=== PATIENT | male | born 1935 | race Caucasian/White ===

== ENCOUNTER → 2016-07-05 | Outpatient (CLI) | payer MEDICARE, BC ==
[~2016-07-05] MED LIST: ACET-2321 PO; AMIO200T7 PO; DILT120T PO; DIVA250T4 PO; DIVA500T37 PO; DONE10TA30 PO; DULO60CA46 PO; FURO-154 PO; GABA-336 PO; HYDR-4072 PO; LEVO75TA10 PO; LOPE1TAB PO; LORA0.5T86 PO; MAGN400O4 PO; MENT113G5 TOP; METO100T7 PO; MINO100T PO; OMEP20TA2 PO; POTA10CA37 PO; PRAZ2CAP2 PO; QUET25TA PO; RIVA20TA PO; SENN-152 PO; TAMS-1 PO
[2016-07-05 15:24] LABS: BLOOD, URINE TRACE-LYSED (NEGATIVE); COLOR,URINE YELLOW (YELLOW); LEUKOCYTE ESTERASE ,URINE NEGATIVE (NEGATIVE); NITRITE,URINE NEGATIVE (NEGATIVE); UROBILINOGEN,URINE 0.2 EU/DL (NORMAL)
== END ==
LOC: LABN.PM 15:17
PROVIDERS: ATTEND Family Medicine
DX: N39.0 Urinary tract infection, site not specified (principal)
CPT/HCPCS: 81003; 87086

== ENCOUNTER 2016-07-11 14:38 | Emergency (ER) | payer MEDICARE, BC ==
[~2016-07-11] VITALS: Ht 182.9 cm; Wt 97.2 kg
--- NOTE | 2016-07-11 14:38 | NUR ---
ROOM TO ROOM VIA EMS COT
[2016-07-11] MEDS ORDERED: LABETALOL 100mg/20ml INJECTION IV ONE (14:45)
[2016-07-11] MEDS ORDERED: NORMAL SALINE 500 ML IV ONE (15:00)
[2016-07-11] MEDS ORDERED: GABA-338 PO (15:12)
--- NOTE | 2016-07-11 15:12 | DI ---
Indication: ITS.REASON: weakness PROCEDURE: CHEST 1 VIEW: Encounter: Initial Comparison: December 14, 2015 Findings: The lungs are stable in appearance without new focal airspace consolidation. There is no pleural effusion or pneumothorax. The heart size, pulmonary vascularity and mediastinal contours are unchanged. Left pacemaker. Right shoulder replacement. Cervical spine hardware. IMPRESSION: Stable appearance of the chest without acute cardiopulmonary disease. .
[2016-07-11 15:18] LABS: BASOPHILS % (AUTO) 0.2 % (0-2); EOSINOPHILS # (AUTO) 0.1 T/MM3 (0-0.5); EOSINOPHILS % (AUTO) 2.2 % (0-4); HCT - HEMATOCRIT 42.9 % (41-53); HGB - HEMOGLOBIN 14.2 GM/DL (13.5-17.5); IMMATURE GRANULOCYTE # (AUTO) 0.03 T/MM3 (0.00-0.03); IMMATURE GRANULOCYTE % (AUTO) 0.6 % (0.0-0.5); LYMPHOCYTES # (AUTO) 0.9 T/MM3 (1-4.8); LYMPHOCYTES % (AUTO) 17.8 % (23-45); MEAN CORPUSCULAR HGB 30.3 UUG (26-34); MEAN CORPUSCULAR HGB CONC(MCHC 33.1 GM/DL (31-37); MEAN CORPUSCULAR VOLUME 91.7 UM3 (80-100); MEAN PLATELET VOLUME 8.5 UM3 (9.4-12.4); MONOCYTES # (AUTO) 0.4 T/MM3 (0-0.8); MONOCYTES % (AUTO) 8.2 % (0-9.0); NEUTROPHILS #(AUTO)-ABSOLUTE 3.5 T/MM3 (1.8-7.7); RED BLOOD COUNT 4.68 M/MM3 (4.50-5.90); WBC - WHITE BLOOD COUNT 4.9 T/MM3 (4.5-11.0)
[2016-07-11 15:28] VITALS: Ht 182.9 cm; Wt 97.2 kg
[2016-07-11 15:30] LABS: ANION GAP 7 MEQ/L (5-15); BUN/CREATININE RATIO 14 RATIO (6-26); CHLORIDE 103 MEQ/L (98-107); CO2 - CARBON DIOXIDE 31 MEQ/L (22-30); CREATININE 2.4 MG/DL (0.8-1.5); GLOMERULAR FILTRATION RATE 26; GLUCOSE 138 MG/DL (75-110); POTASSIUM 4.7 MEQ/L (3.6-5); SODIUM 141 MEQ/L (134-144)
[2016-07-11 15:30] LABS: BLOOD, URINE NEGATIVE (NEGATIVE); COLOR,URINE YELLOW (YELLOW); LEUKOCYTE ESTERASE ,URINE NEGATIVE (NEGATIVE); NITRITE,URINE NEGATIVE (NEGATIVE); UROBILINOGEN,URINE 0.2 EU/DL (NORMAL)
[2016-07-11 15:38] LABS: BACTERIA,URINE NONE SEEN (NEGATIVE); RBC,URINE NONE SEEN /HPF (0-3); SQUAMOUS EPITHELIAL CELL,UR NONE SEEN; WBC,URINE 0-1 /HPF (0-5)
--- NOTE | 2016-07-11 15:45 | ERPDOC ---
Departure Disposition Decision Date: Jul 11, 2016 Disposition Decision Time: 16:28 Disposition: 01 DISCHARGED HOME, SELF-CARE Impression Impression Impression: Primary Impression: Orthostatic hypotension Additional Impression: Weakness Severity: Mild Condition: Improved Seen By: Physician only Referrals: PAWAN BRIGGS MD (Family) 1 Day Patient Instructions: Hypotension (ED), Weakness (ED) Problems/Meds/Labs Reviewed?: Yes Medications reviewed and manag: Yes Follow up care ordered?: Yes Mental Status: Alert, Forgetful, Oriented HPI - General Medical General Chief Complaint: Dizzy Stated Complaint: CP, DIFF BREATHING Time Seen by Provider: 14:40 Source: patient (Patient presents to the ER after becoming weak while walking. Patient was then found to have a HR in the 40's although patient remained normotensive. ), EMS (Patient found the patient with normal vitals), other ( Patient arrives in the ER respomsive to person and place, confused to time. Patient denies complaint, denies striking his head, no focal motor or sensory deficits noted. ) Exam Limitations: no limitations HPI - General Medical Occurred At: home Onset: Changing over time Duration: 1-3 hrs Pain Scale: Now & Worst: 0/10 Severity: mild Modifying Factors: IMPROVES WITH: other (Baseline on arrival at the ER) Associated Symptoms: denies symptoms Hx of Similar Symptoms: No Allergies: Coded Allergies: morphine (Verified Allergy, Unknown, 07/11/16) Past History Patient Surgical History Cervical spine fusion. Pacemaker. Left knee - 10/2014. Right shoulder Past Medical History Metabolic: hypercholesterolemia, hypertension Cardiac: A-fib, CAD, echocardiogram, other GI: GERD Male: renal failure Neurological: TIA Musculoskeletal: osteoarthritis Psychological: anxiety, dementia Surgical History General: neck Cardiac: pacemaker Joint: knee, shoulder Vaccines Hx Influenza Vaccination: Yes (FALL 2014) Hx Pneumococcal Vaccination: Yes (07/14/15) Social History Smoking Status: Unknown if ever smoked Does patient use chewing tobac: No Second Hand Exposure: No Substance Use Type: does not use Alcohol Intake: none Sexuality: female partner Housing: intermediate Service: No Current Occupational Status: retired Occupational Hazard: No Record Review Pertinent history updated: Yes Review of Systems Constitutional Constitutional: DENIES: chills, fever Eyes Lids/Accessories: DENIES: erythema, swelling ENMT Ears: DENIES: erythema, pain Sinuses: DENIES: congestion, rhinorrhea Mouth/Throat: DENIES: sore throat Cardiovascular Cardiac: DENIES: chest pain, dyspnea on exertion, orthopnea Rhythm/Rate: DENIES: tachycardia Pulmonary Respiratory: DENIES: cough, dyspnea, sputum GI Upper Abdomen: DENIES: nausea, pain, vomiting Lower Abdomen: DENIES: constipation, diarrhea, pain General: DENIES: dysuria Musculoskeletal General: DENIES: cramps, pain, weakness Integumentary Skin: DENIES: color change, itching, rash Neurological General: DENIES: change in strength, headache, numbness, seizures, syncope, weakness Psychiatric Psychiatric: DENIES: anxiety, depression, nervousness Hematologic/Lymphatic Hematologic/Lymphatic: DENIES: anemia Allergic/Immunological Allergic/Immunoligical: DENIES: sneezing All other Systems All Other Systems: Reviewed and Negative Physical Exam General General Nourishment: well nourished, well developed, appears stated age, adult General Body Habitus: well groomed Vitals and Pain First Documented Vital Signs Date Time Temp Pulse Resp B/P Pulse Ox O2 Delivery O2 Flow Rate FiO2 07/11/16 15:10 61 103/56 07/11/16 15:23 11 93 07/11/16 15:28 97.8 Room Air Weight: Kilograms: 97.200 Height (feet): 6 Height (inches): 0 Triage Pain Scale: RN VS reviewed by Provider: Yes Eyes (brief) Eyes Brief: found: EOMI, PERRL ENMT (brief) ENMT Brief: FOUND: TM clear, TM good light reflex, mucosa moist, NOT FOUND: pharnyx erythema Neck (brief) Neck: FOUND: trachea midline, NOT FOUND: adenopathy, nuchal rigidity, tenderness, tracheal deviation Respiratory (brief) Respiratory: FOUND: clear all alaniz, equal bilaterally Cardiovascular (brief) Cardiac: FOUND: regular rate, regular rhythm Capillary Refill: <2 sec Pulses: all distal extremities, equal, strong Abdomen (brief) Abdominal Brief: FOUND: bowel normo active x4, soft, NOT FOUND: distended, tender Lymphatic (brief) Lymphatic Brief: NOT FOUND: adenopathy Musculoskeletal (brief) Musculoskeletal Brief: NOT FOUND: spasm, tenderness Integumentary (brief) Integumentary Brief: FOUND: pink, warm Neurologic (brief) Neurological Brief: FOUND: CN w/o gross def to obs, motor-no gross deficits, sensory-no gross deficits Psychiatric (brief) Psychiatric Brief: FOUND: alert, attentive, normal affect, oriented Differential Diagnoses Considering: Acute TN, Depression, Encephalitis, Hypo/Hyperglycemia, Hypo/ Hyperkalemia, Hypo/Hypernatremia, Medication Effect, Metabolic, Pneumonia, Psychosis, Other Progress Results/Orders Orders Procedure Category Date Status Time Labetalol (Trandate) PHA 07/11/16 Complete 14:45 Cbc W/Auto LAB 07/11/16 Complete Diff-Reflex Manual 14:52 Bmp - Basic Metabolic LAB 07/11/16 Complete Panel 14:52 Troponin I W LAB 07/11/16 Complete Hemolysis Index 14:52 EKG EKG 07/11/16 Taken 14:52 Chest 1 View RAD 07/11/16 Resulted 14:52 Iv Lock (Ed Only) EDM 07/11/16 Transmitted 14:52 Normal Saline (Ns) PHA 07/11/16 Complete 15:00 Orthostatic Bp/Pulse EDM 07/11/16 Transmitted 14:52 UA, LAB 07/11/16 Complete Dip&Micro(Complete) & 15:24 Lab Results Laboratory Tests Test 07/11/16 15:13 07/11/16 15:24 White Blood Count 4.9T/MM3 Red Blood Count 4.68M/MM3 Hemoglobin 14.2GM/DL Hematocrit 42.9% Mean Corpuscular Volume 91.7UM3 Mean Corpuscular Hemoglobin 30.3UUG Mean Corpuscular Hemoglobin Concent 33.1GM/DL RDW Standard Deviation 44.4FL Platelet Count 104T/MM3 Mean Platelet Volume 8.5UM3 Immature Granulocyte % (Auto) 0.6% Neutrophils (%) (Auto) 71.0% Lymphocytes (%) (Auto) 17.8% Monocytes (%) (Auto) 8.2% Eosinophils (%) (Auto) 2.2% Basophils (%) (Auto) 0.2% Absolute Immature Granulocyte (auto 0.03T/MM3 Absolute Neutrophils (auto) 3.5T/MM3 Absolute Lymphocytes (auto) 0.9T/MM3 Absolute Monocytes (auto) 0.4T/MM3 Absolute Eosinophils (auto) 0.1T/MM3 Absolute Basophils (auto) 0.0T/MM3 Turbidity < 20 Sodium Level 141MEQ/L Potassium Level 4.7MEQ/L Chloride Level 103MEQ/L Carbon Dioxide Level 31MEQ/L Anion Gap 7MEQ/L Blood Urea Nitrogen 33.0MG/DL Creatinine 2.4MG/DL Glomerular Filtration Rate Calc 26 BUN/Creatinine Ratio 14RATIO Glucose Level 138MG/DL Calculated Osmolality 280MOSM/KG Calcium Level 9.0MG/DL Icterus Index < 2 Troponin I < 0.012ng/ml Chemistry Specimen Hemolysis < 15 Urine Collection Type Cleancatch-midstream Urine Color Yellow Urine Turbidity Clear Urine pH 6.0 Urine Specific [place] 1.015 Urine Protein 1+ Urine Glucose (UA) Negative Urine Ketones Negative Urine Blood Negative Urine Nitrite Negative Urine Bilirubin Negative Urine Urobilinogen 0.2EU/DL Urine Leukocyte Esterase Negative Urine RBC None seen/HPF Urine WBC 0-1/HPF Urine Squamous Epithelial Cells None seen Urine Bacteria None seen Urine Culture Indicated Cult not indicated Medications Current ED Medications Labetalol HCl 10 mg 10 mg O ONCE IV ; Start 07/11/16 at 14:45; Stop 07/11/16 at 14:45; Status DC Sodium Chloride (NS) 500 ml @ 0 mls/hr Q0M ONCE IV Last administered on t 15:06; Start 07/11/16 at 15:00; Stop 07/11/16 at 15:01; Status DC Progress Progress Patient alert and oriented Denies falling or striking his head No Trauma or Focal/Motor/Sensory deficits EKG EKG : Rate: 60-100 Rhythm: other (Atrial Paced) [place]: normal QRS: normal Intervals: normal ST/T: non-specific changes Interpreted by: signing physician EKG ScImage/Picomm EKG interpreted in ScImage/Pic: No Consult/PCP Consult/PCP : Physician Contacted: Angely Deluca APRN Time Called: 16:15 Time of first response: 16:20 Type of discussion: Phone Consult/PCP Discussion Details Discussed patient History, Examination, Labs, EKG, CXR, and Treatment Comments Ms. Deluca is covering for Dr. Briggs Return to the [facility] Will continue to follow Xray Xray : Reason for Exam: Weakness / Arrythmia Xray: CXR Portable Interpretation: Normal, Reviewed Written Report AMILCAR LOVETT DO Jul 11, 2016 15:45
--- NOTE | 2016-07-11 15:50 | NUR ---
STATUS RESTING COMFORTABLY WITH EYES CLOSED. DENIES NEEDS AT THIS TIME.
--- NOTE | 2016-07-11 16:23 | NUR ---
COMMUNICATION DR. LOVETT COMMUNICATES WITH DR. GRIMES'S PA.
--- NOTE | 2016-07-11 16:24 | NUR ---
TRANSPORTATION PHONED AND REQUESTED TRANSPORTATION
--- NOTE | 2016-07-11 16:36 | NUR ---
DRESSED DRESSED PATIENT.
--- NOTE | 2016-07-11 16:47 | NUR ---
DEPART PATIENT LOADED IN WHEELCHAIR AND TRANSPORTED OUT TO [facility]. DEPART INSTRUCTIONS GIVEN TO RN AT PRISON. CONDITION STABLE. TRANSFERS WITHOUT DIFFICULTY
[2016-07-11 17:14] VITALS: BP 110/70; PULSE 61; RESP 15; TEMP 97.8; O2SAT 97
== END 2016-07-11 16:47 | disposition home or self-care (01) ==
LOC: ED 14:38
DX: I95.1 Orthostatic hypotension (principal); R53.1 Weakness; I10 Essential (primary) hypertension
CPT/HCPCS: 36415; 80048; 81001; 84484; 85025; 93005

== ENCOUNTER → 2016-07-18 | Outpatient (CLI) | payer MEDICARE, BC ==
[~2016-07-18] MED LIST changes: -AMIO200T7 PO; +GABA-338 PO; -LOPE1TAB PO; -MAGN400O4 PO
== END ==
LOC: LABNH.PM 00:37
PROVIDERS: ATTEND Family Medicine
DX: E03.9 Hypothyroidism, unspecified (principal)
CPT/HCPCS: 36415; 84443; P9604

== ENCOUNTER → 2016-07-25 | Outpatient (CLI) | payer MEDICARE, BC ==
[2016-07-25 07:28] LABS: ANION GAP 12 MEQ/L (5-15); BUN/CREATININE RATIO 15 RATIO (6-26); CALCIUM 8.5 MG/DL (8.4-10.2); CHLORIDE 106 MEQ/L (98-107); CO2 - CARBON DIOXIDE 28 MEQ/L (22-30); GLOMERULAR FILTRATION RATE 32; GLUCOSE 92 MG/DL (75-110); POTASSIUM 4.2 MEQ/L (3.6-5); SODIUM 146 MEQ/L (134-144)
[2016-07-25 10:47] LABS: VALPROIC ACID/DEPAKOTE 56.7 UG/ML (50-120)
== END ==
LOC: LABNH.PM 02:01
PROVIDERS: ATTEND Family Medicine
DX: I10 Essential (primary) hypertension (principal)
CPT/HCPCS: 36415; 80048; 80164; P9604

== ENCOUNTER → 2016-08-22 | Outpatient (CLI) | payer MEDICARE, BC ==
[2016-08-22 06:26] LABS: BASOPHILS % (AUTO) 0.2 % (0-2); EOSINOPHILS # (AUTO) 0.2 T/MM3 (0-0.5); EOSINOPHILS % (AUTO) 2.9 % (0-4); HCT - HEMATOCRIT 35.7 % (41-53); HGB - HEMOGLOBIN 11.5 GM/DL (13.5-17.5); IMMATURE GRANULOCYTE # (AUTO) 0.01 T/MM3 (0.00-0.03); IMMATURE GRANULOCYTE % (AUTO) 0.2 % (0.0-0.5); LYMPHOCYTES # (AUTO) 1.2 T/MM3 (1-4.8); LYMPHOCYTES % (AUTO) 21.3 % (23-45); MEAN CORPUSCULAR HGB 29.3 UUG (26-34); MEAN CORPUSCULAR HGB CONC(MCHC 32.2 GM/DL (31-37); MEAN CORPUSCULAR VOLUME 91.1 UM3 (80-100); MEAN PLATELET VOLUME 8.5 UM3 (9.4-12.4); MONOCYTES # (AUTO) 0.5 T/MM3 (0-0.8); NEUTROPHILS #(AUTO)-ABSOLUTE 3.6 T/MM3 (1.8-7.7); NEUTROPHILS % (AUTO) 66.4 % (33-66); RED BLOOD COUNT 3.92 M/MM3 (4.50-5.90); WBC - WHITE BLOOD COUNT 5.5 T/MM3 (4.5-11.0)
[2016-08-22 06:38] LABS: ALBUMIN 3.5 G/DL (3.5-5.0); ALBUMIN/GLOBULIN RATIO 1.1 RATIO (1.1-2.2); ALKALINE PHOSPHATASE 80 U/L (38-126); ALT (SGPT) 30 U/L (21-72); ANION GAP 11 MEQ/L (5-15); AST (SGOT) 18 U/L (17-59); BUN/CREATININE RATIO 14 RATIO (6-26); CALCIUM 8.7 MG/DL (8.4-10.2); CHLORIDE 101 MEQ/L (98-107); CO2 - CARBON DIOXIDE 29 MEQ/L (22-30); CREATININE 2.1 MG/DL (0.8-1.5); GLOMERULAR FILTRATION RATE 30; GLUCOSE 96 MG/DL (75-110); POTASSIUM 4.3 MEQ/L (3.6-5); SODIUM 141 MEQ/L (134-144); TOTAL PROTEIN 6.7 G/DL (6.3-8.2)
[2016-08-22 09:08] LABS: URIC ACID 7.4 MG/DL (3.5-8.5)
== END ==
LOC: LABNH.PM 00:08
PROVIDERS: ATTEND Internal Medicine Infectious Disease
DX: I10 Essential (primary) hypertension (principal); E79.0 Hyperuricemia without signs of inflammatory arthritis and tophaceous disease; R70.0 Elevated erythrocyte sedimentation rate; R79.82 Elevated C-reactive protein (CRP)
CPT/HCPCS: 36415; 80053; 84550; 85025; 85652; 86140; P9604

== ENCOUNTER 2017-01-28 19:35 | Inpatient (IN) ==
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
[2017-01-28] MEDS: SENNA + DOCUSATE TABLET PO SCH (23:30)
[2017-01-28] MEDS: GABAPENTIN 300 MG CAPSULE PO SCH (23:30)
[2017-01-28] MEDS: HYDROCODONE/APAP 10 MG/325 MG TABLET PO SCH (23:30)
[2017-01-28] MEDS: TAMSULOSIN 0.4 MG CAPSULE PO SCH (23:30)
[2017-01-28] MEDS: DONEPEZIL 10 MG TABLET PO SCH (23:30)
[2017-01-28] MEDS: DIVALPROEX 500 MG TABLET PO SCH (23:30)
[2017-01-28 23:58] VITALS: BMI 32.8
[2017-01-29] MEDS ORDERED: LORazepam 0.5 MG TABLET PO PRN ×3 (00:03→01:32)
[2017-01-29] MEDS ORDERED: ACETAMINOPHEN 325 MG TABLET PO PRN ×2 (00:06→01:32)
[2017-01-29] MEDS ORDERED: HALOPERIDOL 0.5 MG TABLET PO PRN (01:15)
[2017-01-29] MEDS ORDERED: HALOPERIDOL 5 MG/ML INJECTION IM PRN (01:15)
[2017-01-29] MEDS: TAMSULOSIN 0.4 MG CAPSULE PO SCH ×2 (01:49→20:06)
[2017-01-29] MEDS: OMEPRAZOLE 20 MG CAPSULE PO SCH (06:28)
[2017-01-29] MEDS: LEVOTHYROXINE 75 MCG TABLET PO SCH (06:28)
[2017-01-29] MEDS ORDERED: OMEPRAZOLE 20 MG CAPSULE PO SCH (06:30)
[2017-01-29] MEDS ORDERED: LEVOTHYROXINE 75 MCG TABLET PO SCH (06:30)
[2017-01-29] MEDS ORDERED: FUROSEMIDE 20 MG TABLET PO SCH (09:00)
[2017-01-29] MEDS ORDERED: DULOXETINE 60 MG CAPSULE PO SCH (09:00)
[2017-01-29] MEDS ORDERED: HYDROCODONE/APAP 10 MG/325 MG TABLET PO SCH (09:00)
[2017-01-29] MEDS ORDERED: SENNA + DOCUSATE TABLET PO SCH (09:00)
[2017-01-29] MEDS ORDERED: RIVAROXABAN 20 MG TABLET PO SCH (09:00)
[2017-01-29] MEDS ORDERED: MINOCYCLINE 100 MG CAPSULE PO SCH (09:00)
[2017-01-29] MEDS ORDERED: GABAPENTIN 300 MG CAPSULE PO SCH (09:00)
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
[2017-01-29] MEDS: HYDROCODONE/APAP 10 MG/325 MG TABLET PO SCH ×3 (12:35→17:27)
[2017-01-29] MEDS: METHYL SALICYLATE/MENTHOL OINT 28gm TP SCH ×5 (12:36→20:07)
[2017-01-29] MEDS: DIVALPROEX 500 MG TABLET PO SCH ×2 (12:36→20:06)
[2017-01-29] MEDS: DULOXETINE 60 MG CAPSULE PO SCH (12:52)
[2017-01-29] MEDS: FUROSEMIDE 20 MG TABLET PO SCH (12:53)
[2017-01-29] MEDS: MINOCYCLINE 100 MG CAPSULE PO SCH (12:53)
[2017-01-29] MEDS: GABAPENTIN 300 MG CAPSULE PO SCH ×3 (12:53→20:07)
[2017-01-29] MEDS: SENNA + DOCUSATE TABLET PO SCH ×2 (12:54→20:06)
[2017-01-29] MEDS: RIVAROXABAN 20 MG TABLET PO SCH (12:54)
[2017-01-29] MEDS: DONEPEZIL 10 MG TABLET PO SCH (20:07)
[2017-01-29] MEDS: PRAZOSIN 1 MG CAPSULE PO SCH (20:08)
[2017-01-29] MEDS ORDERED: PRAZOSIN 1 MG CAPSULE PO SCH ×2 (21:00)
[2017-01-29] MEDS ORDERED: TAMSULOSIN 0.4 MG CAPSULE PO SCH (21:00)
[2017-01-29] MEDS ORDERED: DONEPEZIL 10 MG TABLET PO SCH (21:00)
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
[2017-01-30] MEDS: HYDROCODONE/APAP 10 MG/325 MG TABLET PO SCH ×5 (03:47→20:23)
[2017-01-30] MEDS: OMEPRAZOLE 20 MG CAPSULE PO SCH (06:56)
[2017-01-30] MEDS: LEVOTHYROXINE 75 MCG TABLET PO SCH (06:56)
[2017-01-30] MEDS: DULOXETINE 60 MG CAPSULE PO SCH ×2 (09:42→20:25)
[2017-01-30] MEDS: DIVALPROEX 500 MG TABLET PO SCH ×2 (09:42→20:25)
[2017-01-30] MEDS: RIVAROXABAN 20 MG TABLET PO SCH (09:43)
[2017-01-30] MEDS: GABAPENTIN 300 MG CAPSULE PO SCH ×3 (09:43→20:22)
[2017-01-30] MEDS: FUROSEMIDE 20 MG TABLET PO SCH (09:43)
[2017-01-30] MEDS: SENNA + DOCUSATE TABLET PO SCH ×2 (09:44→20:15)
[2017-01-30] MEDS: METHYL SALICYLATE/MENTHOL OINT 28gm TP SCH ×5 (09:44→20:25)
[2017-01-30] MEDS: MINOCYCLINE 100 MG CAPSULE PO SCH (09:52)
--- NOTE | 2017-01-30 17:36 | Progress Note ---
Subjective: Patient is seen today while sitting in the TV room. He reports he is sleeping well. He reports his appetite is good. He does have some left knee pain. He feels his bowels are moving. Objective Vital signs: Temperature 97.8 F 01/30/17 08:00 Pulse Rate 65 01/30/17 08:00 Respiratory Rate 18 01/30/17 08:00 Blood Pressure 151/67 H 01/30/17 08:00 Pulse Oximetry 99 01/30/17 08:00 Height/Weight/BMI: Height 1.7 m Weight 95.2 kg Body Mass Index 32.8 - Constitutional Present: no acute distress, well nourished, well developed - Routine Respiratory Exam Present: CTA bilaterally. Absent: wheezes - Routine Cardiovascular Exam Present: RRR, murmur (grade 2) - Routine Abdominal Exam Present: soft, normoactive bowel sounds, non distended. Absent: tenderness - Routine Extremities Exam Present: no edema, normal capillary refill - Routine Skin Exam Present: dry, warm - Routine Neurological Exam Present: alert - Routine Lymphatic Exam Lymphatic: Absent: adenopathy - Routine Psychiatric Exam Present: normal affect Results - Labs CBC & Chem 7: 01/29/17 06:22 01/29/17 06:22 Assessment and Plan (1) Dementia with behavioral disturbance Current visit: Yes Status: Acute Assessment and Plan: Impression Dementia with behaviors Anemia Hx A-flutter Hypertension Hypothyroidism CKD- Stage 3 Coronary artery disease hypercholesterolemia GERD hx urinary retention Osteoarthritis Depression hyperlipidemia Constipation Hx MRSA infection of the knee Plan He is under replaced given his TSH is 6.40. Will increase his levothyroxine to 88mcg. He will need a TSH rechecked in 6 weeks. Hgb was 8.6 on admission. This is down from 10 one month ago. Last colonoscopy was 04/2015. This was done for known history of GERD, GI bleeding with iron deficiency anemia. At that time, here was no obvious source of patient's anemia and it was recommended that he utilize iron supplementation. Will start iron supplementation with (vitamin C for absorption) at this time. Repeat CBC and BMP tomorrow to follow his hemoglobin and his renal function. Continue to monitor blood pressures. No change in medication at this time. Hospital Course Summary Disclaimer: The visit summary below is not to be considered part of the above Progress Note. Hospital Course: 01/29/17 Impression Dementia with behaviors Anemia Hx A-flutter Hypertension CKD- Stage 3 Coronary artery disease hypercholesterolemia GERD hx urinary retention Osteoarthritis Depression hyperlipidemia Constipation Hx MRSA infection of the knee Plan Agree with admission to [facility] unit for further psychiatric treatment Will monitor blood counts given anemia. Hgb was 8.6. This is down from 10 one month ago. Last colonoscopy was 04/2015- and kids. This was done for known history of GERD, GI bleeding with iron deficiency anemia. At that time. There was no obvious source of patient's anemia and it was recommended that he utilize iron supplementation. Monitor blood pressure, last reported blood pressure was last evening. It was found to be elevated 173/80. Into need to monitor. Patient is currently on Cardizem, Toprol-XL. He is chronically anticoagulated on Xarelto 20 milligrams daily. Continue on chronic Minocycline he has been on since hx of MRSA of the knee Encourage patient to participate in unit activities and provide a safe environment Hospital services will continue to follow patient medically manage his existing comorbidities. At time of discharge medical care will return to primary care provider, Dr. Briggs 01/30/17 He is under replaced given his TSH is 6.40. Will increase his levothyroxine to 88mcg. He will need a TSH rechecked in 6 weeks. Hgb was 8.6 on admission. This is down from 10 one month ago. Last colonoscopy was 04/2015. This was done for known history of GERD, GI bleeding with iron deficiency anemia. At that time, here was no obvious source of patient's anemia and it was recommended that he utilize iron supplementation. Will start iron supplementation with (vitamin C for absorption) at this time. Repeat CBC and BMP tomorrow to follow his hemoglobin and his renal function. Continue to monitor blood pressures. No change in medication at this time.
[2017-01-30] MEDS: DONEPEZIL 10 MG TABLET PO SCH (20:23)
[2017-01-30] MEDS: TAMSULOSIN 0.4 MG CAPSULE PO SCH (20:23)
[2017-01-30] MEDS: PRAZOSIN 1 MG CAPSULE PO SCH (20:24)
--- NOTE | 2017-01-30 21:58 | Neuropsych Progress Note ---
[facility] Subjective Date: 01/30/17 - Sujective/Severity of Illness Medications: Acetaminophen (Tylenol) 650 mg PO Q4H PRN PRN Reason: Pain Hydrocodone Bitart/Acetaminophen ([place] ) 1 tab PO QID ON LICENSE OF [facility] Last Admin: 01/30/17 20:23 Dose: 1 tab Ascorbic Acid (Vitamin C) 250 mg PO BIDWM ON LICENSE OF [facility] Diltiazem HCl (Cardizem Cd) 120 mg PO DAILY ON LICENSE OF [facility] Last Admin: 01/30/17 09:42 Dose: 120 mg Divalproex Sodium (Depakote) 500 mg PO BID ON [facility] OF [facility] Last Admin: 01/30/17 20:25 Dose: 500 mg Donepezil HCl (Aricept) 10 mg PO HS ON LICENSE OF [facility] Last Admin: 01/30/17 20:23 Dose: 10 mg Duloxetine HCl (Cymbalta) 60 mg PO DAILY ON LICENSE OF [facility] Last Admin: 01/30/17 20:25 Dose: 60 mg Ferrous Sulfate (Feosol) 324 mg PO BIDWM ON LICENSE OF [facility] Furosemide (Lasix) 20 mg PO DAILY ON [facility] OF [facility] Last Admin: 01/30/17 09:43 Dose: 20 mg Gabapentin (Neurontin) 300 mg PO TID ON LICENSE OF [facility] Last Admin: 01/30/17 20:22 Dose: 300 mg Haloperidol (Haldol) 0.5 mg PO Q6H PRN PRN Reason: Extreme agitation Haloperidol Lactate (Haldol) 0.5 mg IM Q6H PRN PRN Reason: Extreme agitation Levothyroxine Sodium (Synthroid) 88 mcg PO ACB ON LICENSE OF [facility] Lorazepam (Ativan Inj) 0.5 mg IM Q6H PRN PRN Reason: Extreme agitation Lorazepam (Ativan) 0.5 mg PO Q6H PRN PRN Reason: Extreme agitation Lorazepam (Ativan) 0.5 mg PO Q6H PRN PRN Reason: Anxiety Metoprolol Succinate (Toprol Xl) 50 mg PO DAILY ON [facility] Last Admin: 01/30/17 09:43 Dose: 50 mg Minocycline HCl (Minocin) 100 mg PO DAILY ON [facility] Last Admin: 01/30/17 09:52 Dose: 100 mg Multi-Ingredient Ointment (Analgesic [place]) 1 applic TP BID ON [facility] OF [facility] Last Admin: 01/30/17 20:25 Dose: 1 applic Multi-Ingredient Ointment (Analgesic [place]) 1 applic TP TID ON [facility] OF [facility] Last Admin: 01/30/17 16:12 Dose: 1 applic Omeprazole (Prilosec) 20 mg PO ACB ON LICENSE OF [facility] Last Admin: 01/30/17 06:56 Dose: 20 mg Potassium Chloride (Micro-K) 10 meq PO WB ON LICENSE OF [facility] Last Admin: 01/30/17 09:43 Dose: 10 meq Prazosin HCl (Minipress) 4 mg PO HS ON [facility] OF [facility] Last Admin: 01/30/17 20:24 Dose: 4 mg Rivaroxaban (Xarelto) 20 mg PO DAILY ON [facility] Last Admin: 01/30/17 09:43 Dose: 20 mg Senna/Docusate Sodium (Senna Plus Tablet) 2 tab PO BID ON LICENSE OF [facility] Last Admin: 01/30/17 09:44 Dose: 2 tab Tamsulosin HCl (Flomax) 0.4 mg PO HS ON LICENSE OF [facility] Last Admin: 01/30/17 20:23 Dose: 0.4 mg Subjective: Patient seen and chart reviewed. Case discussed with treatment team. On interview, patient is significantly more pleasant and interactive than upon interview yesterday. He reports that his mood is good ("about ready to jump over the nuno") and he would like to get to know several other gentlemen on the unit as friends. He states, "We might even have a dance!" as 2 of them have nearby birthdays. Patient is not tense or paranoid as he was during interview yesterday. Patient denies any SI, HI or AVH. Patient denies any adverse side effects related to psychotropic medications. Nursing staff report patient has been pleasant and cooperative, without behavioral difficulties or aggression on the unit. He is adherent with medications. Patient slept 10.5 hours overnight. VSS. Patient is eating well. Psychotropic PRNs required in the past 24 hours: none. Plan to discuss environmental changes (not being allowed with alone) to LTC facility. Start Time: 16:40 Stop Time: 17:00 Mental Status Exam Vitals: Last Vital Signs Temp 97.6 F 01/30/17 20:54 Pulse 64 01/30/17 20:54 Resp 16 01/30/17 20:54 BP 150/66 H 01/30/17 20:54 Pulse Ox 99 01/30/17 20:54 Height: 1.7 m Weight: 95.2 kg - Mental Status Exam Muscle Strength/Tone: Normal Dressing: Casual Grooming: Good Attitude: Cooperative Motor Activity: Normal Eye Contact: Good Speech: Normal Volume: Normal Rhythm: Appropriate Rhythm Orientation: Disoriented to time, Disoriented to place, Oriented to person Mood: Euthymic Affect: Bright Rate of Thoughts: Delayed Thought Organization: Organized Associations: Intact Abstract Reasoning: Poor abstract reasoning Thought Content: Normal Perception/Psychotic: Perception Normal Language: Naming Impaired Fund of Knowledge: Poor fund of knowledge Memory: Poor-recent Suicidal Ideation: Denies Homicidal Ideation: Denies Insight: Poor Judgement: Poor Impulse Control: Fair - Laboratory Result Diagrams: 01/29/17 06:22 01/29/17 06:22 Assessment and Plan (1) Major neurocognitive disorder Problem details: with behavioral disturbance Current visit: Yes Status: Acute Hospital Course Summary Disclaimer: The visit summary below is not to be considered part of the above Progress Note. Hospital Course: 01/29/17 Impression Dementia with behaviors Anemia Hx A-flutter Hypertension CKD- Stage 3 Coronary artery disease hypercholesterolemia GERD hx urinary retention Osteoarthritis Depression hyperlipidemia Constipation Hx MRSA infection of the knee Plan Agree with admission to [facility] for further psychiatric treatment Will monitor blood counts given anemia. Hgb was 8.6. This is down from 10 one month ago. Last colonoscopy was 04/2015- and kids. This was done for known history of GERD, GI bleeding with iron deficiency anemia. At that time. There was no obvious source of patient's anemia and it was recommended that he utilize iron supplementation. Monitor blood pressure, last reported blood pressure was last evening. It was found to be elevated 173/80. Into need to monitor. Patient is currently on Cardizem, Toprol-XL. He is chronically anticoagulated on Xarelto 20 milligrams daily. Continue on chronic Minocycline he has been on since hx of MRSA of the knee Encourage patient to participate in unit activities and provide a safe environment Hospital services will continue to follow patient medically manage his existing comorbidities. At time of discharge medical care will return to primary care provider, Dr. Briggs 01/30/17 He is under replaced given his TSH is 6.40. Will increase his levothyroxine to 88mcg. He will need a TSH rechecked in 6 weeks. Hgb was 8.6 on admission. This is down from 10 one month ago. Last colonoscopy was 04/2015. This was done for known history of GERD, GI bleeding with iron deficiency anemia. At that time, here was no obvious source of patient's anemia and it was recommended that he utilize iron supplementation. Will start iron supplementation with (vitamin C for absorption) at this time. Repeat CBC and BMP tomorrow to follow his hemoglobin and his renal function. Continue to monitor blood pressures. No change in medication at this time. 01/30/17 Psych: Continue current home medications and recommend environmental changes as patient is typically only physically aggressive with his . They do not live together but will recommend supervised visits only to LTC facility. Continue to monitor for any signs of aggression or mood lability that would warrant additional medication management.
[2017-01-31] MEDS: LEVOTHYROXINE 88 MCG TABLET PO SCH (05:59)
[2017-01-31] MEDS: OMEPRAZOLE 20 MG CAPSULE PO SCH (05:59)
[2017-01-31] MEDS: FERROUS SULFATE 324 MG TABLET PO SCH ×2 (09:49→17:28)
[2017-01-31] MEDS: ASCORBIC ACID 500 MG TABLET PO SCH ×2 (09:50→17:28)
[2017-01-31] MEDS: SENNA + DOCUSATE TABLET PO SCH ×2 (09:51→19:44)
[2017-01-31] MEDS: DIVALPROEX 500 MG TABLET PO SCH ×2 (09:51→19:44)
[2017-01-31] MEDS: GABAPENTIN 300 MG CAPSULE PO SCH ×3 (09:51→19:44)
[2017-01-31] MEDS: FUROSEMIDE 20 MG TABLET PO SCH (09:51)
[2017-01-31] MEDS: MINOCYCLINE 100 MG CAPSULE PO SCH (09:51)
[2017-01-31] MEDS: HYDROCODONE/APAP 10 MG/325 MG TABLET PO SCH ×4 (09:53→19:44)
[2017-01-31] MEDS: METHYL SALICYLATE/MENTHOL OINT 28gm TP SCH ×5 (09:54→19:46)
[2017-01-31] MEDS: DULOXETINE 60 MG CAPSULE PO SCH (10:10)
[2017-01-31] MEDS: CYANOCOBALAMIN (B-12) 500mcg TABLET PO SCH (17:28)
[2017-01-31] MEDS: RIVAROXABAN 20 MG TABLET PO SCH (17:29)
--- NOTE | 2017-01-31 17:48 | Neuropsych Progress Note ---
[facility] Subjective Date: 01/31/17 - Sujective/Severity of Illness Medications: Acetaminophen (Tylenol) 650 mg PO Q4H PRN PRN Reason: Pain Hydrocodone Bitart/Acetaminophen ([place] ) 1 tab PO QID [facility] Last Admin: 01/31/17 17:28 Dose: 1 tab Ascorbic Acid (Vitamin C) 250 mg PO BIDWM [facility] Last Admin: 01/31/17 17:28 Dose: 250 mg Cyanocobalamin (Vit. B-12) 1,000 mcg PO DAILY [facility] Last Admin: 01/31/17 17:28 Dose: 1,000 mcg Diltiazem HCl (Cardizem Cd) 120 mg PO DAILY [facility] Last Admin: 01/31/17 09:51 Dose: 120 mg Divalproex Sodium (Depakote) 500 mg PO BID [facility] Last Admin: 01/31/17 09:51 Dose: 500 mg Donepezil HCl (Aricept) 10 mg PO HS [facility] Last Admin: 01/30/17 20:23 Dose: 10 mg Duloxetine HCl (Cymbalta) 60 mg PO DAILY [facility] Last Admin: 01/31/17 10:10 Dose: 60 mg Ferrous Sulfate (Feosol) 324 mg PO BIDWM [facility] Last Admin: 01/31/17 17:28 Dose: 324 mg Furosemide (Lasix) 20 mg PO DAILY [facility] Last Admin: 01/31/17 09:51 Dose: 20 mg Gabapentin (Neurontin) 300 mg PO TID [facility] Last Admin: 01/31/17 17:28 Dose: 300 mg Haloperidol (Haldol) 0.5 mg PO Q6H PRN PRN Reason: Extreme agitation Haloperidol Lactate (Haldol) 0.5 mg IM Q6H PRN PRN Reason: Extreme agitation Levothyroxine Sodium (Synthroid) 88 mcg PO ACB [facility] Last Admin: 01/31/17 05:59 Dose: 88 mcg Lorazepam (Ativan Inj) 0.5 mg IM Q6H PRN PRN Reason: Extreme agitation Lorazepam (Ativan) 0.5 mg PO Q6H PRN PRN Reason: Extreme agitation Lorazepam (Ativan) 0.5 mg PO Q6H PRN PRN Reason: Anxiety Metoprolol Succinate (Toprol Xl) 50 mg PO DAILY [facility] Last Admin: 01/31/17 09:52 Dose: 50 mg Minocycline HCl (Minocin) 100 mg PO DAILY [facility] Last Admin: 01/31/17 09:51 Dose: 100 mg Multi-Ingredient Ointment (Analgesic [place]) 1 applic TP BID [facility] Last Admin: 01/31/17 09:54 Dose: 1 applic Multi-Ingredient Ointment (Analgesic [place]) 1 applic TP TID [facility] Last Admin: 01/31/17 17:30 Dose: 1 applic Omeprazole (Prilosec) 20 mg PO ACB [facility] Last Admin: 01/31/17 05:59 Dose: 20 mg Potassium Chloride (Micro-K) 10 meq PO WB [facility] Last Admin: 01/31/17 09:50 Dose: 10 meq Prazosin HCl (Minipress) 4 mg PO HS [facility] Last Admin: 01/30/17 20:24 Dose: 4 mg Rivaroxaban (Xarelto) 20 mg PO WS [facility] Last Admin: 01/31/17 17:29 Dose: 20 mg Senna/Docusate Sodium (Senna Plus Tablet) 2 tab PO BID [facility] Last Admin: 01/31/17 09:51 Dose: 2 tab Tamsulosin HCl (Flomax) 0.4 mg PO HS [facility] Last Admin: 01/30/17 20:23 Dose: 0.4 mg Subjective: Patient seen and chart reviewed. Case discussed with treatment team. On interview, patient is pleasant and interactive. He reports that his mood is good but he worries about the state of our country and our President (he is watching the news). He is appropriate and demonstrates some reserve when speaking of this delicate topic. Otherwise, he shares with me that he would like to get back to [place] if possible and "he never gives up." Patient denies any SI, HI or AVH. Patient denies any adverse side effects related to psychotropic medications. Nursing staff report patient has been pleasant and cooperative, without behavioral difficulties or aggression on the unit. He is adherent with medications. Patient slept 8 hours overnight. VSS. Patient is eating well. Psychotropic PRNs required in the past 24 hours: none. Plan to discuss environmental changes (not being allowed with alone) to LTC facility. SLUMS 10/20. Start Time: 16:40 Stop Time: 17:00 Mental Status Exam Vitals: Last Vital Signs Temp 97.4 F 01/31/17 08:00 Pulse 63 01/31/17 08:00 Resp 16 01/31/17 08:00 BP 125/64 01/31/17 08:00 Pulse Ox 97 01/31/17 08:00 Height: 1.7 m Weight: 95.2 kg - Mental Status Exam Muscle Strength/Tone: Normal Dressing: Casual Grooming: Good Attitude: Cooperative Motor Activity: Normal Eye Contact: Good Speech: Normal Volume: Normal Rhythm: Appropriate Rhythm Orientation: Disoriented to time, Disoriented to place, Oriented to person Mood: Euthymic Affect: Bright Rate of Thoughts: Delayed Thought Organization: Tangential Associations: Intact Abstract Reasoning: Poor abstract reasoning Thought Content: Normal Perception/Psychotic: Perception Normal Language: Naming Impaired Fund of Knowledge: Poor fund of knowledge Memory: Poor-recent Suicidal Ideation: Denies Homicidal Ideation: Denies Insight: Poor Judgement: Poor Impulse Control: Fair - Laboratory Result Diagrams: 01/31/17 05:40 01/31/17 05:40 Laboratory Results - last 24 hr 01/29/17 01/31/17 01/31/17 06:22 05:40 05:40 WBC 4.9 RBC 3.38 L Hgb 8.7 L Hct 29.3 L MCV 86.7 MCH 25.7 L MCHC 29.7 L RDW Std Deviation 45.6 Plt Count 221 MPV 7.8 L Immature Gran % (Auto) 0.4 Neut % (Auto) 65.3 Lymph % (Auto) 20.5 L [place] % (Auto) 11.1 H Eos % (Auto) 2.3 Baso % (Auto) 0.4 Neut # (Auto) 3.2 Lymph # (Auto) 1.0 [place] # (Auto) 0.5 Eos # (Auto) 0.1 Baso # (Auto) 0.0 Abs Immat Gran (auto) 0.02 Turbidity < 20 Sodium 143 Potassium 4.3 Chloride 104 Carbon Dioxide 30 Anion Gap 9 BUN 26.0 H Creatinine 1.8 H D GFR Calculation 36 BUN/Creatinine Ratio 14 Glucose 79 Calculated Osmolality 279 Calcium 8.4 Icterus Index < 2 Vitamin B12 252 Folate 5.7 Specimen Hemolysis < 15 Assessment and Plan (1) Major neurocognitive disorder Problem details: with behavioral disturbance - 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 Hospital Course: 01/29/17 Impression Dementia with behaviors Anemia Hx A-flutter Hypertension CKD- Stage 3 Coronary artery disease hypercholesterolemia GERD hx urinary retention Osteoarthritis Depression hyperlipidemia Constipation Hx MRSA infection of the knee Plan Agree with admission to [facility] for further psychiatric treatment Will monitor blood counts given anemia. Hgb was 8.6. This is down from 10 one month ago. Last colonoscopy was 04/2015- and kids. This was done for known history of GERD, GI bleeding with iron deficiency anemia. At that time. There was no obvious source of patient's anemia and it was recommended that he utilize iron supplementation. Monitor blood pressure, last reported blood pressure was last evening. It was found to be elevated 173/80. Into need to monitor. Patient is currently on Cardizem, Toprol-XL. He is chronically anticoagulated on Xarelto 20 milligrams daily. Continue on chronic Minocycline he has been on since hx of MRSA of the knee Encourage patient to participate in unit activities and provide a safe environment Hospital services will continue to follow patient medically manage his existing comorbidities. At time of discharge medical care will return to primary care provider, Dr. Briggs 01/30/17 He is under replaced given his TSH is 6.40. Will increase his levothyroxine to 88mcg. He will need a TSH rechecked in 6 weeks. Hgb was 8.6 on admission. This is down from 10 one month ago. Last colonoscopy was 04/2015. This was done for known history of GERD, GI bleeding with iron deficiency anemia. At that time, here was no obvious source of patient's anemia and it was recommended that he utilize iron supplementation. Will start iron supplementation with (vitamin C for absorption) at this time. Repeat CBC and BMP tomorrow to follow his hemoglobin and his renal function. Continue to monitor blood pressures. No change in medication at this time. 01/30/17 Psych: Continue current home medications and recommend environmental changes as patient is typically only physically aggressive with his . They do not live together but will recommend supervised visits only to LTC facility. Continue to monitor for any signs of aggression or mood lability that would warrant additional medication management. 01/31/17 Psych: Continue current medications as patient is doing quite well. Will discuss environmental changes with LTC facility and that patient and should NOT be allowed to have unsupervised contact.
[2017-01-31] MEDS: TAMSULOSIN 0.4 MG CAPSULE PO SCH (19:45)
[2017-01-31] MEDS: DONEPEZIL 10 MG TABLET PO SCH (19:45)
[2017-01-31] MEDS: PRAZOSIN 1 MG CAPSULE PO SCH (19:45)
[2017-02-01] MEDS: HYDROCODONE/APAP 10 MG/325 MG TABLET PO SCH ×6 (04:21→22:25)
[2017-02-01] MEDS: LEVOTHYROXINE 88 MCG TABLET PO SCH (06:03)
[2017-02-01] MEDS: OMEPRAZOLE 20 MG CAPSULE PO SCH (06:03)
[2017-02-01] MEDS: ASCORBIC ACID 500 MG TABLET PO SCH ×2 (08:56→17:26)
[2017-02-01] MEDS: FERROUS SULFATE 324 MG TABLET PO SCH ×2 (08:59→17:26)
[2017-02-01] MEDS: CYANOCOBALAMIN (B-12) 500mcg TABLET PO SCH (08:59)
[2017-02-01] MEDS: DIVALPROEX 500 MG TABLET PO SCH ×2 (09:00→20:29)
[2017-02-01] MEDS: DULOXETINE 60 MG CAPSULE PO SCH (09:00)
[2017-02-01] MEDS: GABAPENTIN 300 MG CAPSULE PO SCH ×3 (09:01→20:29)
[2017-02-01] MEDS: FUROSEMIDE 20 MG TABLET PO SCH (09:01)
[2017-02-01] MEDS: SENNA + DOCUSATE TABLET PO SCH ×2 (09:01→20:29)
[2017-02-01] MEDS: MINOCYCLINE 100 MG CAPSULE PO SCH (09:02)
[2017-02-01] MEDS: METHYL SALICYLATE/MENTHOL OINT 28gm TP SCH ×5 (09:03→20:31)
[2017-02-01] MEDS: RIVAROXABAN 20 MG TABLET PO SCH (17:26)
--- NOTE | 2017-02-01 17:46 | Neuropsych Progress Note ---
[facility] Subjective Date: 02/01/17 - Sujective/Severity of Illness Medications: Acetaminophen (Tylenol) 650 mg PO Q4H PRN PRN Reason: Pain Hydrocodone Bitart/Acetaminophen ([place] [address]) 1 tab PO QID [facility] Last Admin: 02/01/17 14:47 Dose: 1 tab Ascorbic Acid (Vitamin C) 250 mg PO BIDWM [facility] Last Admin: 02/01/17 17:26 Dose: 250 mg Cyanocobalamin (Vit. B-12) 1,000 mcg PO DAILY [facility] Last Admin: 02/01/17 08:59 Dose: 1,000 mcg Diltiazem HCl (Cardizem Cd) 120 mg PO DAILY [facility] Last Admin: 02/01/17 09:00 Dose: 120 mg Divalproex Sodium (Depakote) 500 mg PO BID [facility] Last Admin: 02/01/17 09:00 Dose: 500 mg Donepezil HCl (Aricept) 10 mg PO HS [facility] Last Admin: 01/31/17 19:45 Dose: 10 mg Duloxetine HCl (Cymbalta) 60 mg PO DAILY [facility] Last Admin: 02/01/17 09:00 Dose: 60 mg Ferrous Sulfate (Feosol) 324 mg PO BIDWM [facility] Last Admin: 02/01/17 17:26 Dose: 324 mg Furosemide (Lasix) 20 mg PO DAILY [facility] Last Admin: 02/01/17 09:01 Dose: 20 mg Gabapentin (Neurontin) 300 mg PO TID [facility] Last Admin: 02/01/17 14:48 Dose: 300 mg Haloperidol (Haldol) 0.5 mg PO Q6H PRN PRN Reason: Extreme agitation Haloperidol Lactate (Haldol) 0.5 mg IM Q6H PRN PRN Reason: Extreme agitation Levothyroxine Sodium (Synthroid) 88 mcg PO ACB [facility] Last Admin: 02/01/17 06:03 Dose: 88 mcg Lorazepam (Ativan Inj) 0.5 mg IM Q6H PRN PRN Reason: Extreme agitation Lorazepam (Ativan) 0.5 mg PO Q6H PRN PRN Reason: Extreme agitation Lorazepam (Ativan) 0.5 mg PO Q6H PRN PRN Reason: Anxiety Metoprolol Succinate (Toprol Xl) 50 mg PO DAILY [facility] Last Admin: 02/01/17 09:05 Dose: 50 mg Minocycline HCl (Minocin) 100 mg PO DAILY [facility] Last Admin: 02/01/17 09:02 Dose: 100 mg Multi-Ingredient Ointment (Analgesic [place]) 1 applic TP BID [facility] Last Admin: 02/01/17 09:03 Dose: 1 applic Multi-Ingredient Ointment (Analgesic [place]) 1 applic TP TID [facility] Last Admin: 02/01/17 14:48 Dose: 1 applic Omeprazole (Prilosec) 20 mg PO ACB [facility] Last Admin: 02/01/17 06:03 Dose: 20 mg Potassium Chloride (Micro-K) 10 meq PO WB [facility] Last Admin: 02/01/17 08:57 Dose: 10 meq Prazosin HCl (Minipress) 4 mg PO HS [facility] Last Admin: 01/31/17 19:45 Dose: 4 mg Rivaroxaban (Xarelto) 20 mg PO WS [facility] Last Admin: 02/01/17 17:26 Dose: 20 mg Senna/Docusate Sodium (Senna Plus Tablet) 2 tab PO BID [facility] Last Admin: 02/01/17 09:01 Dose: 2 tab Tamsulosin HCl (Flomax) 0.4 mg PO HS [facility] Last Admin: 01/31/17 19:45 Dose: 0.4 mg Subjective: Patient seen and chart reviewed. Case discussed with treatment team. On interview, patient is pleasant and interactive. He reports that his mood is good and he is feeling well physically. He has been pleasant and appropriate on the unit, as well as kind to other patients and staff. He tells me today that he does not remember the incident that led to this hospitalization though he has expressed feeling regretful about it to multiple other staff members. The reason for the discrepancy is unclear as I do not feel it is his cognitive deficits. Patient denies any SI, HI or AVH. Patient denies any adverse side effects related to psychotropic medications. Nursing staff report patient has been pleasant and cooperative, without behavioral difficulties or aggression on the unit. He is adherent with medications. Patient slept 9 hours overnight. VSS. Patient is eating well. Psychotropic PRNs required in the past 24 hours: none. Plan to discuss environmental changes (not being allowed with alone and to separate at the first sign of escalation) to LTC facility. SLUMS 10/20. Start Time: 15:40 Stop Time: 16:00 Mental Status Exam Vitals: Last Vital Signs Temp 97.7 F 02/01/17 16:00 Pulse 67 02/01/17 16:00 Resp 20 02/01/17 16:00 BP 136/66 02/01/17 16:00 Pulse Ox 98 02/01/17 16:00 Height: 1.7 m Weight: 95.2 kg - Mental Status Exam Muscle Strength/Tone: Normal Dressing: Casual Grooming: Good Attitude: Cooperative Motor Activity: Normal Eye Contact: Good Speech: Normal Volume: Normal Rhythm: Appropriate Rhythm Orientation: Disoriented to time, Disoriented to place, Oriented to person Mood: Euthymic Rate of Thoughts: Delayed Thought Organization: Tangential Associations: Intact Abstract Reasoning: Poor abstract reasoning Thought Content: Normal Perception/Psychotic: Perception Normal Language: Naming Impaired Fund of Knowledge: Poor fund of knowledge Memory: Poor-recent Suicidal Ideation: Denies Homicidal Ideation: Denies Insight: Poor Judgement: Poor Impulse Control: Good - Laboratory Result Diagrams: 01/31/17 05:40 01/31/17 05:40 Laboratory Results - last 24 hr 01/30/17 06:21 Iron 92 TIBC 256 L % Saturation 36 Assessment and Plan (1) Major neurocognitive disorder Problem details: with behavioral disturbance - 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 Hospital Course: 01/29/17 Impression Dementia with behaviors Anemia Hx A-flutter Hypertension CKD- Stage 3 Coronary artery disease hypercholesterolemia GERD hx urinary retention Osteoarthritis Depression hyperlipidemia Constipation Hx MRSA infection of the knee Plan Agree with admission to [facility] unit for further psychiatric treatment Will monitor blood counts given anemia. Hgb was 8.6. This is down from 10 one month ago. Last colonoscopy was 04/2015- and kids. This was done for known history of GERD, GI bleeding with iron deficiency anemia. At that time. There was no obvious source of patient's anemia and it was recommended that he utilize iron supplementation. Monitor blood pressure, last reported blood pressure was last evening. It was found to be elevated 173/80. Into need to monitor. Patient is currently on Cardizem, Toprol-XL. He is chronically anticoagulated on Xarelto 20 milligrams daily. Continue on chronic Minocycline he has been on since hx of MRSA of the knee Encourage patient to participate in unit activities and provide a safe environment Hospital services will continue to follow patient medically manage his existing comorbidities. At time of discharge medical care will return to primary care provider, Dr. Briggs 01/30/17 He is under replaced given his TSH is 6.40. Will increase his levothyroxine to 88mcg. He will need a TSH rechecked in 6 weeks. Hgb was 8.6 on admission. This is down from 10 one month ago. Last colonoscopy was 04/2015. This was done for known history of GERD, GI bleeding with iron deficiency anemia. At that time, here was no obvious source of patient's anemia and it was recommended that he utilize iron supplementation. Will start iron supplementation with (vitamin C for absorption) at this time. Repeat CBC and BMP tomorrow to follow his hemoglobin and his renal function. Continue to monitor blood pressures. No change in medication at this time. 01/30/17 Psych: Continue current home medications and recommend environmental changes as patient is typically only physically aggressive with his . They do not live together but will recommend supervised visits only to LTC facility. Continue to monitor for any signs of aggression or mood lability that would warrant additional medication management. 01/31/17 Psych: Continue current medications as patient is doing quite well. Will discuss environmental changes with LTC facility and that patient and should NOT be allowed to have unsupervised contact. 02/01/17 Psych: Patient has done very well on our unit - plan to discuss above with facility as well as need to separate patient and and first sign of escalation. Plan to discharge back to facility tomorrow.
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
--- NOTE | 2017-02-01 17:52 | Extended Care Facility Orders ---
Admission Orders Admit to:: [facility] Allergies/Adverse Reactions: Allergies morphine Allergy (Unknown, Verified 01/28/17 19:56) Admitting Diagnosis: Major neurocognitive disorder with behavioral dist Admitting Physician: Crystal Shi MD Attending Physician: Crystal Shi MD Anticiapted Length of Stay: greater than 30 days Rehab Potential: fair Rehab Prognosis: fair Diet: 01/29/17 Breakfast Regular Diet [DIET] Diet Modifications: May use Facility Protocol or Standing Orders: Yes May have flu vaccine: Yes Evaluations/Treatment: Psychiatric Retirement Certification: I certify that SNF services are required to be given on an Inpatient basis because of the patients need for usp care on a continuing basis for the condition(s) for which he/she received inpatient hospital services prior to his/her transfer to the SNF. SNF inpatient care is necessary for the following reasons Indication for Retirement: Not Applicable - Additional Information Referrals: Sheyla Briggs MD [Family Provider] - (Dr. Anderson Briggs will see patient on rounds at the facility for Hosp. follow-up. LALA Nguyen will see patient on rounds at the facility for Mental Health follow- up. )
[2017-02-01] MEDS: DONEPEZIL 10 MG TABLET PO SCH (20:28)
[2017-02-01] MEDS: TAMSULOSIN 0.4 MG CAPSULE PO SCH (20:29)
[2017-02-01] MEDS: PRAZOSIN 1 MG CAPSULE PO SCH (20:30)
[2017-02-01 20:47] VITALS: O2SAT 96
[2017-02-02] MEDS: OMEPRAZOLE 20 MG CAPSULE PO SCH (05:29)
[2017-02-02] MEDS: LEVOTHYROXINE 88 MCG TABLET PO SCH (05:29)
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
[2017-02-02] MEDS: FUROSEMIDE 20 MG TABLET PO SCH (09:06)
[2017-02-02] MEDS: HYDROCODONE/APAP 10 MG/325 MG TABLET PO SCH ×2 (09:07→13:43)
[2017-02-02] MEDS: GABAPENTIN 300 MG CAPSULE PO SCH ×2 (09:08→13:57)
[2017-02-02] MEDS: FERROUS SULFATE 324 MG TABLET PO SCH (09:09)
[2017-02-02] MEDS: ASCORBIC ACID 500 MG TABLET PO SCH (09:10)
[2017-02-02] MEDS: DULOXETINE 60 MG CAPSULE PO SCH (09:10)
[2017-02-02] MEDS: CYANOCOBALAMIN (B-12) 500mcg TABLET PO SCH (09:11)
[2017-02-02] MEDS: DIVALPROEX 500 MG TABLET PO SCH (09:11)
[2017-02-02] MEDS: MINOCYCLINE 100 MG CAPSULE PO SCH (09:11)
[2017-02-02] MEDS: METHYL SALICYLATE/MENTHOL OINT 28gm TP SCH ×2 (09:12→09:13)
[2017-02-02] MEDS: SENNA + DOCUSATE TABLET PO SCH (09:13)
[2017-02-02 09:15] VITALS: BP 147/73; PULSE 99; RESP 16; TEMP 97.3
[2017-02-02] MEDS ORDERED: RisperiDONE 0.5 MG TABLET PO PRN (11:14)
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
== END 2017-02-02 15:20 | DRG 884 ==
LOC: ED 19:35 → GEN 20:57
PROVIDERS: ADMIT Psychiatry & Neurology Psychiatry; ATTEND Psychiatry & Neurology Psychiatry